=== PATIENT | female | born 2000 | race Caucasian/White ===

== ENCOUNTER 2024-06-26 14:43 | Emergency (ER) | payer OTHER, SELFPAY ==
[2024-06-26 14:45] VITALS: BP 145/82; PULSE 118; RESP 22; TEMP 36.3; O2SAT 99
== END 2024-06-26 15:24 | disposition home or self-care (01) ==
LOC: ED 15:21
DX: Z53.21 Procedure and treatment not carried out due to patient leaving prior to being seen by health care provider (principal)